=== PATIENT | female | born 1965 | race African-American/Black ===

== ENCOUNTER 2016-11-05 13:00 | Inpatient (IN) | payer OTHER ==
[~2016-11-05] VITALS: Ht 160 cm; Wt 79.4 kg
--- NOTE | ~2016-11-05 | PA ---
Unit #: [id number] #: [id number] Patient: MARION DE LEON [id number] [facility] [address] [place] [address] [id number] MR#: [id number] NAME: MARION DE LEON ROOM: [facility] Age: 51 Sex: F Admission Date: 11/05/2016 : 1965 Date of Assessment: 11/06/2016 Attending Physician: Luis Toledo M.D. Admitting Physician: Luis Toledo M.D. PSYCHIATRIC ASSESSMENT IDENTIFYING INFORMATION The patient is a 51-year-old female, admitted with a history of cocaine, alcohol, and cannabis abuse. INFORMANT(S) Patient and chart, reliability fair. CHIEF COMPLAINT None given. HISTORY OF PRESENT ILLNESS The patient is a 51-year-old female, who is originally from [place], [place]. She has presented to this facility stating that she has been in the [facility] homeless for some time and has been abusing alcohol, cocaine, and marijuana. The patient reports that she did not make any suicidal threats, but was somehow misunderstood and placed in the hospital against her will. The patient states that she is requesting outpatient services when seen today. She reports a previous history of treatment at a facility in [place], [place] and states that she has maintained sobriety for a significant period of time thereafter. She denies any current suicidal or homicidal ideation, and denies prior suicide attempts or gestures. PAST PSYCHIATRIC HISTORY As above. PAST MEDICAL HISTORY Significant for a history of chronic pain. MEDICATIONS Tramadol, hydrocodone, Neurontin, Prilosec, cyclobenzaprine. ALLERGIES None. FAMILY HISTORY Noncontributory. SOCIAL HISTORY The patient is currently homeless, she reports substance use disorder previously. MENTAL STATUS EXAM Unit #: [id number] #: [id number] Patient: MARION DE LEON At this time reveals the patient to be a well-developed, well-nourished female, appearing her stated age. She is in no apparent physical distress at the time of the examination. She is awake, alert, and oriented in all spheres. Her mood is euthymic. Her affect is full-range. Speech is generally relevant and coherent. There are no gross deficits to memory or cognition noted. Intelligence is judged to be in the average range based on fund of knowledge. The patient is cooperative throughout the interview. She is currently reporting no suicidal or homicidal ideation or psychotic features. Judgment and insight appear to be intact. ASSETS Motivation for change. LIABILITIES Lack of resources. DIAGNOSTIC IMPRESSION [place] I: Alcohol use disorder. Cocaine use disorder. Cannabis use disorder. [place] II: [place] III: History of chronic pain. History of gastroesophageal reflux disease. [place] IV: [place] V: TREATMENT PLAN The patient is requesting discharge at this time and does not meet criteria for hospitalization and discharge will be ordered. Dictated by... Luis Toledo M.D. KISHAN/jose TD: 11/07/2016 06:03 JOB #: [id number] PSYCHIATRIC ASSESSMENT Page 1 of 1 X Luis Toledo MD X PSYCHIATRIC ASSESSMENT
--- NOTE | ~2016-11-05 | HP ---
Unit #: [id number] #: [id number] Patient: MARION DE LEON [id number] [place] [address] [id number] I MR#: [id number] NAME: MARION DE LEON ROOM: P185 Age: 51 Sex: F Admission Date: 11/05/2016 : 1965 Attending Physician: Luis Toledo M.D. Admitting Physician: Luis Toledo M.D. HISTORY AND PHYSICAL HISTORY OF PRESENT ILLNESS Marion is a 51 year old admitted to [facility] because of her polysubstance abuse which includes cocaine, marijuana and pain pills. PAST MEDICAL HISTORY 1. Long history of illicit substance abuse. 2. Degenerative disc disease. PAST SURGICAL HISTORY Nothing reported. ALLERGIES No known drug allergies. SOCIAL HISTORY Smokes one pack per day. Drinks alcohol frequently and admits to illicit drug use. FAMILY HISTORY Medically noncontributory. REVIEW OF SYSTEMS CONSTITUTIONAL: No fever or chills. HEENT: Denies any sore throat, ear pain or runny nose. CARDIOVASCULAR: Denies chest pain, irregular heart rhythm or palpitations. CHEST: Denies shortness of breath or cough. No hemoptysis. GASTROINTESTINAL: Denies nausea, vomiting, diarrhea or chronic constipation. ENDOCRINE: Denies history of increased thirst or urination. No recent significant weight loss or gain. GENITOURINARY: Denies dysuria, frequency, or hematuria. SKIN: Denies any rashes. HEMATOLOGIC: Denies history of increased bleeding or bruising. MUSCULOSKELETAL: Denies any hot, swollen joints. No generalized muscle pain. NEUROLOGIC: Denies problems with vision or speech. No frequent, severe headaches. No numbness, tingling or weakness in any extremities. Denies loss of bladder or bowel control. CURRENT MEDICATIONS Detox protocol Unit #: [id number] #: [id number] Patient: MARION DE LEON PHYSICAL EXAMINATION GENERAL: Alert, well-nourished, in no apparent distress. VITAL SIGNS: Blood pressure 110/60, heart rate 68, respirations 16, temperature 98.6. WEIGHT: 175. HEIGHT: 5 foot 3 inches. SKIN: Warm and dry without rash or lesion. HEENT: Normocephalic. TMs not viewed. Oral and nasal passages clear. Conjunctivae clear. Pupils equal, round and reactive to light and accommodation. Extraocular movements intact. NECK: Supple without lymphadenopathy or thyromegaly. HEART: Regular rate and rhythm without murmur. LUNGS: Clear. ABDOMEN: Soft, nontender. : Not done. EXTREMITIES: No evidence of cyanosis, clubbing or edema. Moves all extremities without focal deficit. NEUROLOGICAL: Grossly within normal limits. Cranial Nerves: II: Visual michele are intact. III, IV AND : Extraocular movements are intact. Pupils are equal, round and reactive to light. V: Facial sensation is grossly normal. VII: Facial movements and expression are normal. VIII: Auditory acuity grossly intact. IX, X: Uvula is midline. Phonation is normal. XI: Patient shrugs shoulders and turns head normally. XII: Tongue protrudes in the midline. Sensory and Motor Function: Sensory and motor sensation is grossly normal. Motor: moves all extremities well. Coordination: Gait is normal. Deep Tendon Reflexes: Intact. IMPRESSION Psychiatric admission. RECOMMENDATIONS PSYCHIATRIC: Per psychiatrist. MEDICAL: I see no contraindications to participating in facility's activities. MEDICAL PROGNOSIS Good. MEDICAL CONDITION Stable. Dictated by... Jo-Ann Mcallister P.A.-C. for Carlos Smith/barbara TD: 11/06/2016 21:42 JOB #: [id number] Unit #: [id number] #: [id number] Patient: MARION DE LEON HISTORY AND PHYSICAL Page 1 of 1 X Jo-Ann Mcallister HISTORY AND PHYSICAL
--- NOTE | ~2016-11-05 | DS ---
Unit #: [id number] #: [id number] Patient: MARION DE LEON [id number] [facility] [address] [place] [address] [id number] MR#: [id number] NAME: MARION DE LEON ROOM: [facility] Age: 51 Sex: F Admission Date: 11/05/2016 : 1965 Discharge Date: 11/06/2016 Attending Physician: Luis Toledo M.D. DISCHARGE SUMMARY REASON FOR ADMISSION The patient is a 51-year-old homeless, single, female, admitted to the [facility] unit after she had presented this facility reporting history of abuse of cocaine, alcohol, and cannabis. HOSPITAL COURSE The patient was admitted to the [facility] unit and placed on suicide precautions. A routine detoxification protocol for opioids and alcohol was ordered. The patient expressed displeasure with discontinuation of her opioid pain medication and demanded discharge from the hospital on 11/05/2016, a 72-hour hold became necessary. When seen by this physician on 11/06/2016, the patient vehemently denied suicidal ideation and requested discharge stating a wish to restart her "cigarettes and pain pills." As per her request, discharge was ordered. FINAL DIAGNOSES Alcohol use disorder, cannabis use disorder, cocaine use disorder, chronic pain, gastroesophageal reflux disease. DISPOSITION ON DISCHARGE The patient is discharged on no psychotropic or other medications prescribed by this physician. FOLLOWUP She will follow up through the auspices of community mental health resources. PROGNOSIS Her prognosis is considered fair. Dictated by... Luis Toledo M.D. CB/kane TD: 11/07/2016 02:03 JOB #: [id number] Unit #: [id number] #: [id number] Patient: MARION DE LEON DISCHARGE SUMMARY Page 1 of 1 X Luis Toledo MD X DISCHARGE SUMMARY
[2016-11-06 12:30] LABS: BASOPHIL% 1.1 % (0-2.5); EOSINOPHIL# 0.1 X10e3 (0-0.7); EOSINOPHIL% 1.7 % (0.0-7.0); HEMATOCRIT 33.6 % (35.0-45.0); HEMOGLOBIN 10.9 gm/dL (12.0-16.0); LYMPHOCYTE# 1.3 X10e3 (1.0-3.5); LYMPHOCYTE% 29.5 % (17.0-45.0); MEAN CORPUSCULAR HEMOGLOBIN 25.8 PG (28-34); MEAN CORPUSCULAR HGB CONC 32.3 g/dL (30-36); MONOCYTE# 0.5 X10e3 (0-1.0); MONOCYTE% 10.5 % (3.0-12.0); NEUTROPHIL# 2.5 X10e3 (1.5-7.1); NEUTROPHIL% 57.2 % (40-75); PLATELET COUNT 272 X10e3 (140-420); RED BLOOD COUNT 4.21 X10e (3.90-5.30); RED CELL DISTRIBUTION WIDTH 15.5 % (11.0-15.5); WHITE BLOOD COUNT 4.4 X10e3 (4.0-10.5)
[2016-11-06 12:36] LABS: DIFF IND NO
[2016-11-06 12:42] LABS: URINE APPEARANCE CLOUDY; URINE BILIRUBIN NEG (NEG); URINE BLOOD NEG (NEG); URINE COLOR YELLOW; URINE GLUCOSE NEG (NEG); URINE KETONE NEG (NEG); URINE LEUKOCYTE ESTERASE 2+ (NEG); URINE NITRATE NEG (NEG); URINE PH 5.5 (5-8); URINE PROTEIN NEG (NEG); URINE UROBILINOGEN 0.2 MG/DL (NEG)
[2016-11-06 12:45] LABS: U HYALINE CASTS AUWI 0-2 /[LPF]; URBCS1 AUWI 0-2 /[HPF] (0-2); URINE BACTERIA AUWI 2+ (NEGATIVE); URINE SQUAMOUS EPITHELIAL CELL FEW /[HPF]; UWBCS1 AUWI 25-50 (0-5)
[2016-11-06 13:17] LABS: ALBUMIN SERUM 3.2 g/dL (3.5-5.0); BILIRUBIN,TOTAL 0.5 mg/dL (0.2-2.0); CALCIUM SERUM 8.9 mg/dL (8.4-10.2); GLOM FILT RATE Estimated 76.6 mL/min (>60); PROTEIN TOTAL SERUM 5.5 g/dL (6.0-8.3)
[2016-11-06 13:53] LABS: AMPHETAMINE NEG (NEG); BARBITURATES NEG (NEG); BENZODIAZEPINES NEG (NEG); COCAINE NEG (NEG); MARIJUANA POS (NEG); OPIATES NEG (NEG); TRICYCLIC ANTIDEPRESSANTS POS (NEG); U METHADONE NEG (NEG)
== END 2016-11-06 17:04 | DRG 897 ==
LOC: P1E 16:09
PROVIDERS: Specialist
PROC: HZ2ZZZZ Detoxification Services for Substance Abuse Treatment (ICD-10-PCS; principal; 2016-11-02)
DX: F14.10 Cocaine abuse, uncomplicated (principal); F10.10 Alcohol abuse, uncomplicated; F12.10 Cannabis abuse, uncomplicated; F17.200 Nicotine dependence, unspecified, uncomplicated; G89.29 Other chronic pain; K21.9 Gastro-esophageal reflux disease without esophagitis
CPT/HCPCS: 80053; 80307; 81003; 84703; 85025; 86592